=== PATIENT | female | born 1995 | race Caucasian/White ===

== ENCOUNTER 2019-04-23 08:45 | Day surgery (SDC) | payer OTHER ==
[2019-04-23 09:25] VITALS: BP 110/69; TEMP 98.6; BMI 42.5
--- NOTE | 2019-04-23 10:37 | ULT ---
US Biophysical Profile: 04/23/2019 9:50 AM CLINICAL HISTORY: Decreased movement at 35 weeks. COMPARISON: None. FINDINGS: heart rate: 130 bpm. MORGAN: 13.1 cm Biophysical profile: 8 of 8 IMPRESSION: Normal biophysical profile
--- NOTE | 2019-04-24 04:13 | SS ---
DATE OF ADMISSION: 04/23/2019 DATE OF DISCHARGE: 04/23/2019 REGULAR PHYSICIAN: Gray Neff MD EVALUATING PHYSICIAN: Daryl Nuñez MD. CHIEF COMPLAINT: Decreased movement. HISTORY OF PRESENT ILLNESS: Ms. Rebolledo is a 23-year-old white G2, P1-0-0-1 with an estimated date of confinement of 05/24/2019, who presents complaining of decreased movement that she noticed this morning. She denies rupture of membranes or vaginal bleeding. She states that she ate a donut and another sugary breakfast food but did not feel the baby move until she just got to the hospital and put on the monitor. Her care has been with Dr. Neff and she denies significant complications. PAST OBSTETRICAL HISTORY: Includes one vaginal delivery at term. PAST MEDICAL HISTORY: Polycystic ovarian syndrome and endometriosis. PAST SURGICAL HISTORY: Removal of left ovarian cyst and cholecystectomy. CURRENT MEDICATIONS: vitamins. ALLERGIES: NO KNOWN ALLERGIES. SOCIAL HISTORY: Denies tobacco, alcohol, or drug use. FAMILY HISTORY: Unremarkable. REVIEW OF SYSTEMS: Denies nausea, vomiting, fever, chills, ruptured membranes, or vaginal bleeding. PHYSICAL EXAMINATION: VITAL SIGNS: In triage, her vital signs are stable. She is afebrile. GENERAL: She is pleasant and in no acute distress. ABDOMEN: Soft, nontender, and gravid. There is no guarding or rebound. PELVIC: Deferred. heart rate tracing is reassuring with spontaneous accelerations. No decelerations are seen. No uterine activity is noted. Biophysical profile is performed and this returns 8/8 with an MORGAN of 13.1, and a cephalic fetus seen. ASSESSMENT: 1. 35-4/7th week intrauterine . 2. Reassuring testing here today. PLAN: Patient will be dismissed to home. kick counts were reviewed with her in detail. She states that she has an appointment with Dr. Neff early next week and will keep that appointment. Job ID: [id number]
== END 2019-04-23 10:40 | disposition home or self-care (01) ==
LOC: L&D/OP 08:45
PROVIDERS: ATTEND Obstetrics & Gynecology
DX: O36.8130 Decreased fetal movements, third trimester, not applicable or unspecified (principal); O99.283 Endocrine, nutritional and metabolic diseases complicating pregnancy, third trimester; E28.2 Polycystic ovarian syndrome; Z3A.35 35 weeks gestation of pregnancy
CPT/HCPCS: 76819; 99282

== ENCOUNTER 2019-05-23 08:36 | Inpatient (IN) | payer OTHER ==
[2019-05-23 09:12] VITALS: BMI 42.7
[2019-05-23] MEDS ORDERED: FLU VACC QS2019-20(6MOS UP)/PF 60 MCG/0.5 ML SYRINGE IM ONE (09:15)
[2019-05-23] MEDS ORDERED: hydrALAZINE 20 MG/ML VIAL SLOW IVP PRN ×3 (10:03→21:55)
--- NOTE | 2019-05-23 10:03 | PDOC.FPROB ---
FMR OB H&P: Medications - Current Home Medications: Medication Instructions Recorded Confirmed Type Pnv No.95/Ferrous Fum/Folic AC 1 each PO DAILY 04/23/19 05/23/19 History [ Formula] Allergies/Adverse Reactions: Allergies Allergy/AdvReac Type Severity Reaction Status Date / Time No Known Allergies Allergy Verified 05/23/19 09:07 FMR OB H&P: Vital Signs - Maternal Vital signs: Vital Signs - First Documented Temp Pulse Resp BP 98.4 F 125 H 18 132/75 05/23/19 08:59 05/23/19 08:59 05/23/19 08:59 05/23/19 08:59 [facility]MR OB H&P: A/P Discussion: Date/Time: 05/23/19 1003 This H&P was discussed with [] and [] who agree with the above documentation and plan.
[2019-05-23] MEDS ORDERED: Ondansetron PF 4 MG/2 ML Vial IVP PRN ×3 (10:23→21:55)
[2019-05-23] MEDS ORDERED: Lidocaine 1% (PF) 30 ML VIAL SC PRN (10:23)
[2019-05-23] MEDS ORDERED: Promethazine HCl 25 MG/ML VIAL IM PRN ×3 (10:23→21:55)
[2019-05-23] MEDS ORDERED: NS / Oxytocin 40 units/1000ml 1,000 ML IV PRN (10:23)
[2019-05-23] MEDS: Lactated Ringer's 1,000 ML IV SCH ×3 (10:43→13:00)
[2019-05-23 11:04] LABS: Hemoglobin 11.4 g/dL (12.0-16.0); Mean Corpuscular HGB CONC 34.2 g/dL (32.0-36.0); Mean Corpuscular Hemoglobin 29.7 pg (27.0-31.0); Mean Corpuscular Volume 87.1 fL (78.0-98.0); Mean Platelet Volume 8.2 fL (7.4-10.4); Platelet Count 197 thou/uL (130-400); RBC Distribution Width 13.3 % (11.5-14.5); Red Blood Cell (RBC) Count 3.84 mill/uL (4.20-5.40); White Blood Cell (WBC) Count 12.8 thou/uL (4.8-10.8)
[2019-05-23] MEDS ORDERED: Fentanyl 4 mcg/Bup 0.1% Cadd 100 ML ONE (11:43)
[2019-05-23 11:46] LABS: HBSAg Index 0.27 S/CO (0-0.99); Hep B Surf Ag Non-Reactive S/CO (NonReactive); Syphilis Antibody Nonreactive (Nonreactive); Syphilis Antibody Index 0.59 S/CO (<1.00 Non-Reactive)
[2019-05-23] MEDS ORDERED: Fentanyl 100 MCG/2 ML VIAL ONE (12:23)
[2019-05-23] MEDS ORDERED: Lactated Ringer's 500 ML IV PRN (12:44)
[2019-05-23] MEDS ORDERED: diphenhydrAMINE 50 MG/ML VIAL IVP PRN (12:44)
[2019-05-23] MEDS ORDERED: Naloxone HCl 0.4 mg/ml Vial IVP PRN ×2 (12:44)
[2019-05-23] MEDS ORDERED: Acetaminophen 325 MG TAB PO PRN (12:44)
[2019-05-23] MEDS ORDERED: ePHEDrine/0.9% NaCl/PF SYRINGE 50 mg/10 ml SLOW IVP PRN (12:44)
[2019-05-23] MEDS ORDERED: Communication Order-Pharmacy FS SCH (12:45)
[2019-05-23] MEDS ORDERED: Fentanyl 4 mcg/Bupivacaine 0.1% Cassette 100 ML EPIDURAL SCH (12:45)
[2019-05-23] MEDS ORDERED: NS w/ Oxytocin 10 units 500 ML IV SCH ×2 (15:00)
[2019-05-23] MEDS ORDERED: NS / Oxytocin 40 units/1000ml 1,000 ML ONE (18:10)
[2019-05-23] MEDS ORDERED: Lidocaine 1% (PF) 30 ML VIAL ONE (18:10)
[2019-05-23] MEDS ORDERED: Methylergonovine 0.2 MG/ML VIAL IM PRN (21:55)
[2019-05-23] MEDS ORDERED: Zolpidem Tartrate 5 MG TAB PO PRN (21:55)
[2019-05-23] MEDS ORDERED: Bisacodyl 10 MG SUPP PR PRN (21:55)
[2019-05-23] MEDS ORDERED: Misoprostol 200 MCG TAB VAG PRN (21:55)
[2019-05-23] MEDS ORDERED: Benzocaine-Menthol 82.5 ML CAN TOP PRN (21:55)
[2019-05-23] MEDS ORDERED: Milk Of Magnesia 30 ML UDCUP PO PRN (21:55)
[2019-05-23] MEDS ORDERED: Lanolin Ointment 7 GM TUBE TOP PRN (21:55)
[2019-05-23] MEDS ORDERED: HYDROcodone/Acetaminophen 5/325 mg Tablet PO PRN ×2 (21:55)
[2019-05-23] MEDS ORDERED: NS / Oxytocin 40 units/1000ml 1,000 ML IV SCH (21:55)
[2019-05-23] MEDS ORDERED: diphenhydrAMINE 25 MG CAP PO PRN (21:55)
[2019-05-23] MEDS ORDERED: Preparation H Ointment 57 gram tube RC PRN (21:55)
[2019-05-23] MEDS: Ibuprofen 800 MG TAB PO SCH (22:26)
[2019-05-24 05:24] LABS: Hemoglobin 10.4 g/dL (12.0-16.0); Mean Corpuscular HGB CONC 34.9 g/dL (32.0-36.0); Mean Corpuscular Hemoglobin 31.2 pg (27.0-31.0); Mean Corpuscular Volume 89.4 fL (78.0-98.0); Platelet Count 163 thou/uL (130-400); RBC Distribution Width 13.1 % (11.5-14.5); Red Blood Cell (RBC) Count 3.34 mill/uL (4.20-5.40); White Blood Cell (WBC) Count 14.2 thou/uL (4.8-10.8)
[2019-05-24] MEDS: Ibuprofen 800 MG TAB PO SCH ×2 (05:58→13:26)
[2019-05-24] MEDS: Ferrous Sulfate 325 MG TAB PO SCH ×2 (08:41→17:31)
[2019-05-24] MEDS ORDERED: Varicella virus, LIVE 0.5 ML VIAL SC ONE (09:00)
[2019-05-24] MEDS ORDERED: Measles/Mumps/Rubella 10 MCG/0.5 ML VIAL SC ONE (09:00)
[2019-05-24] MEDS ORDERED: Adacel (T-DAP) 0.5 ML SYRINGE IM ONE (09:00)
[2019-05-24] MEDS ORDERED: Docusate Calcium (SURFAK) 240 MG CAP PO SCH (09:00)
[2019-05-24] MEDS ORDERED: Prenatal Vitamin 1 TAB PO SCH (09:00)
--- NOTE | 2019-05-24 19:41 | PDOC.PP ---
Post Progress Note Post Day #: 1 PO intake tolerated: yes Flatus: yes Ambulation: yes Vital Signs (12 hours) Temp Pulse Resp BP Pulse Ox 05/24/19 17:15 98.8 F 78 16 110/69 98 05/24/19 11:50 98.7 F 90 20 120/65 05/24/19 08:21 98.4 F 79 20 110/69 98 05/24/19 07:50 98 Weight Weight 241 lb - Physical Examination General: NAD Cardiovascular: no m/r/g, RRR Respiratory: clear to auscultation bilaterally Abdominal: + bowel sounds, lochia, no distention Extremities: negative homans (B) Neurological: no gross focal deficits Psychiatric: A&Ox3, normal affect Result Diagrams: 05/24/19 04:57 Additional Labs: Post Labs Blood Type A POSITIVE 05/23/19 10:50 Hep Bs Antigen Non-Reactive S/CO (NonReactive) 05/23/19 10:50
[2019-05-24 20:28] VITALS: BP 131/65; TEMP 99
== END 2019-05-24 21:00 | disposition home or self-care (01) | DRG 807 ==
LOC: L&D/OP 08:36 → L&D 12:11 → 3SW 20:14
PROVIDERS: ADMIT Obstetrics & Gynecology; ATTEND Obstetrics & Gynecology
PROC: 10E0XZZ Delivery of Products of Conception, External Approach (ICD-10-PCS; principal; 2019-05-23)
PROC: 10907ZC Drainage of Amniotic Fluid, Therapeutic from Products of Conception, Via Natural or Artificial Opening (ICD-10-PCS; 2019-05-23)
DX: O80 Encounter for full-term uncomplicated delivery (principal); Z37.0 Single live birth; Z3A.39 39 weeks gestation of pregnancy
CPT/HCPCS: 36415; 85027; 86780; 86850; 86900; 86901; 87340; J2001; J2590; J3010